=== PATIENT | male | born 1965 | race Caucasian/White ===

== ENCOUNTER 2021-05-25 16:30 | Emergency (ER) | payer BC, SELFPAY ==
[2021-05-25 16:37] VITALS: BP 114/59; PULSE 55; RESP 16; TEMP 36.8; O2SAT 99
--- NOTE | 2021-05-25 16:55 | ED.EAR ---
HPI - Ear Problem General Chief complaint: Ear Stated complaint: eat pain Time Seen by Provider: 05/25/21 16:55 Source: patient Mode of arrival: ambulatory Limitations: no limitations History of Present Illness HPI Narrative: Franky Sinha is a 56-year-old male with left ear pain x3 days, this week has a prior history of a perforated eardrum Related Data Home Medications Medication Instructions Recorded Confirmed alprazolam 2 mg PO BID PRN 05/25/21 05/25/21 hydrocodone-acetaminophen 1 tablet PO QID PRN 05/25/21 05/25/21 zolpidem 10 mg PO HS 05/25/21 05/25/21 Allergies Allergy/AdvReac Type Severity Reaction Status Date / Time No Known Allergies Allergy Verified 05/25/21 16:47 Review of Systems Review of Systems: Narrative: CONSTITUTIONAL: Denies fever, chills, sweats. EYES: Denies visual changes, redness, discharge. ENT: Denies rhinorrhea, congestion, sore throat, L otalgia. CARDIOVASCULAR: Denies chest pain, palpitations, edema. RESPIRATORY: Denies dyspnea, wheezing, cough GASTROINTESTINAL: Denies abdominal pain, nausea, vomiting, diarrhea. GENITOURINARY: Denies dysuria, hematuria, abnormal discharge SKIN: Denies rash or itching. NEUROLOGIC: Denies numbness, or focal weakness. PSYCHIATRIC: Denies anxiety or depression. [facility] Past Medical History Medical History Anxiety Perforated eardrum Family History Family History Other Cancer Social History Social History (Updated 05/25/21 @ 17:02 by Stacia Ohara CNP) Smoking status: Never smoker Alcohol intake: current Comments At time of signature, I agree with nursing past medical, surgical, social and family history. There is no relevant family history pertinent to the presenting complaint. Exam Narrative: Exam Narrative: GENERAL: This is a well-nourished, well-developed patient, in mild distress. HEAD: normocephalic, atraumatic. EYES: Sclera clear/white. Vision is grossly intact. EARS: External ears normal, auditory canals clear on right , mild erythema on left and without drainage, small amount of wax in left, TMs normal without perforation. Hearing grossly intact. NOSE: External nose normal without nasal discharge, nares without redness, no rhinorrhea. THROAT: Mucous membranes moist, NECK: Neck supple, non-tender CARDIOVASCULAR: Regular rate and rhythm without murmurs, gallops, or rubs. RESPIRATORY: Clear to auscultation. Breath sounds equal bilaterally. No wheezes, rales, or rhonchi. GASTROINTESTINAL: Abdomen soft, SKIN: warm, intact with no suspicious lesions or rash, good texture and turgor. NEURO: awake, alert, and oriented to person, place and time. There were no obvious focal neurologic abnormalities. Steady gait EXTREMITIES: Normal range of motion. BACK: Nontender without deformity Course Course Emergency Course: [facility] complaints of left ear pain Started on Ciprodex for 10 days after complete the eardrops should use Debrox in left ear to help with softening wax Vital Signs Vital signs: Vital Signs Temperature 98.3 F 05/25/21 16:37 Pulse Rate 55 L 05/25/21 16:37 Respiratory Rate 16 05/25/21 16:37 Blood Pressure 114/59 L 05/25/21 16:37 Pulse Oximetry 99 05/25/21 16:37 Temperature 98.3 F 05/25/21 16:37 Pulse Rate 55 L 05/25/21 16:37 Respiratory Rate 16 05/25/21 16:37 Blood Pressure 114/59 L 05/25/21 16:37 Pulse Oximetry 99 05/25/21 16:37 Medical Decision Making MDM Narrative Medical decision making narrative: Otitis media versus otitis externa versus ear eardrum perforation versus mastoiditis Vital Signs Vital Signs: Vital Signs Temperature 98.3 F 05/25/21 16:37 Pulse Rate 55 L 05/25/21 16:37 Respiratory Rate 16 05/25/21 16:37 Blood Pressure 114/59 L 05/25/21 16:37 Pulse Oximetry 99 05/25/21 16:37 Temperature 98.3 F
== END 2021-05-25 17:10 | disposition home or self-care (01) ==
PROVIDERS: Emergency Provider Nurse Practitioner
DX: H66.005 Acute suppurative otitis media without spontaneous rupture of ear drum, recurrent, left ear (principal); F41.9 Anxiety disorder, unspecified
CPT/HCPCS: 99203; G0463

== ENCOUNTER 2023-02-12 10:31 | Outpatient (CLI) | payer BC, SELFPAY | END 2023-02-12 10:32 | disposition home or self-care (01) | LOC: ANHBWCAUD 10:31 | PROVIDERS: Visit Provider Otolaryngology | DX: H65.499 Other chronic nonsuppurative otitis media, unspecified ear (principal); H69.80 Other specified disorders of Eustachian tube, unspecified ear; Z87.730 Personal history of (corrected) cleft lip and palate; H90.6 Mixed conductive and sensorineural hearing loss, bilateral | CPT/HCPCS: 92557; 92567 ==